=== PATIENT | female | born 1990 | race Caucasian/White ===

== ENCOUNTER 2023-08-27 06:16 | Day surgery (SDC) | payer OTHER ==
[2023-08-27] MEDS ORDERED: Sodium Chloride 0.9% 1,000 ML IV SCH (07:00)
[2023-08-27] MEDS ORDERED: Propofol 200 MG/20 ML SDV ONE (07:16)
[2023-08-27] MEDS ORDERED: fentaNYL 100 MCG/2 ML SDV ONE (07:16)
[2023-08-27] MEDS ORDERED: Midazolam 1 MG/ML 2 ML SDV ONE (07:16)
== END 2023-08-27 09:32 | disposition home or self-care (01) ==
LOC: JP.SDS 06:16
PROVIDERS: ATTEND Surgery
DX: K21.00 Gastro-esophageal reflux disease with esophagitis, without bleeding (principal); K22.89 Other specified disease of esophagus
CPT/HCPCS: 43239; 81025; 88305; J2250; J2704; J3010; J7030